=== PATIENT | female | born 1970 | race Caucasian/White ===

== ENCOUNTER → 2016-12-28 | Outpatient (REF) | payer BC | LOC: M SFHCWAGY 13:34 | PROVIDERS: ATTEND Nurse Practitioner Family | DX: Z12.4 Encounter for screening for malignant neoplasm of cervix (principal) ==

== ENCOUNTER → 2016-12-28 | Outpatient (CLI) | payer BC ==
--- NOTE | 2016-12-28 16:32 | REPMRS ---
Patient History The patient states she had a clinical breast exam in 11/2016. No known family history of cancer. Digital Woman Screen Mammo: December 28, 2016 - Exam #: [id number] Bilateral CC and MLO view(s) were taken. Technologist: Rebecca Monahan, Technologist Prior study comparison: December 23, 2014, digital woman screen mammo performed at [facility]. November 30, 2012, digital woman screen mammo performed at [facility]. April 09, 2010, bilateral bilat screen digital mammo performed at [facility]. FINDINGS: There are scattered fibroglandular densities. There has been no change in the appearance of the mammogram from the prior studies. There is a mild amount of scattered fibroglandular density which is fairly symmetric. There is no interval development of dominant mass, architectural distortion, or clustered microcalcification suggestive of malignancy. ASSESSMENT: BI-RADS/ACR category 1 mammogram. Negative. Recommendation Routine screening mammogram in 1 year (for women over age 40). This mammogram was interpreted with the aid of an FDA-approved computer-aided dectection system. Electronically Signed By: Americo Shi MD 12/28/16 [id number]
== END ==
LOC: M WHC 13:22
PROVIDERS: ATTEND Nurse Practitioner Family
DX: Z12.31 Encounter for screening mammogram for malignant neoplasm of breast (principal)

== ENCOUNTER → 2017-05-05 | Outpatient (REF) | payer BC | LOC: M LAB REF 12:17 | DX: J02.9 Acute pharyngitis, unspecified (principal) | CPT/HCPCS: 87081 ==

== ENCOUNTER → 2018-10-24 | Outpatient (CLI) | payer BC ==
--- NOTE | 2018-10-24 11:24 | REPMRS ---
Patient History The patient states she had a clinical breast exam in 09/2018. No known family history of cancer. Digital Woman Screen Mammo: October 24, 2018 - Exam #: [id number] Bilateral CC and MLO view(s) were taken. Technologist: Krista Roblero, Technologist Prior study comparison: December 28, 2016, digital woman screen mammo performed at [facility]. December 23, 2014, digital woman screen mammo performed at [facility]. FINDINGS: There are scattered fibroglandular densities. Bilateral screening digital mammogram with tomosynthesis: The patient states that there are no palpable abnormalities or other breast complaints. The patient's Tyrer-[place] Lifetime Breast Carcinoma Risk is: 9.7%. There is no interval development of dominant mass, areas of architectural distortion, or clustered microcalcification typical of malignancy. There are no additional findings on tomosynthesis. This mammogram is interpreted with the aid of an FDA approved computer-aided detection system. Not all cancers are identified by mammography. Negative mammogram reports should not delay biopsy if a dominant or clinically suspicious mass is present. Adenosis and dense breasts may obscure an underlying neoplasm. No significant changes when compared with prior studies. Assessment: BI-RADS/ACR category 1 mammogram. Negative Mammogram. Recommendation Routine screening mammogram in 1 year (for women over age 40). This mammogram was interpreted with the aid of an FDA-approved computer-aided dectection system. A. Negative x-ray reports should not delay biopsy if a dominant or clinically suspicious mass is present. B. Not all cancers are identified by mammography. C. Adenosis and dense breast may obscure an underlying neoplasm. Electronically Signed By: Mayco Mayorga M.D. 10/24/18 1124
== END ==
LOC: M WHC 08:32
PROVIDERS: ATTEND Nurse Practitioner Family
DX: Z12.31 Encounter for screening mammogram for malignant neoplasm of breast (principal)

== ENCOUNTER → 2018-10-24 | Outpatient (REF) | payer BC ==
[2018-10-26 14:24] LABS: HPV HYBRID CAPTURE II Negative (Negative)
== END ==
LOC: M SFHCWAGY 09:15
PROVIDERS: ATTEND Nurse Practitioner Family
DX: Z12.4 Encounter for screening for malignant neoplasm of cervix (principal)
CPT/HCPCS: 87624; G0123

== ENCOUNTER → 2019-10-29 | Outpatient (CLI) | payer BC ==
--- NOTE | 2019-10-29 09:55 | REPMRS ---
Patient History The patient states she had a clinical breast exam in October 2019. No known family history of cancer. Digital Woman Screen Mammo: October 29, 2019 - Exam #: [id number] Bilateral CC and MLO view(s) were taken. Technologist: Christine Fya Technologist Prior study comparison: October 24, 2018, bilateral digital woman screen mammo performed at [facility]. December 28, 2016, digital woman screen mammo performed at [facility]. December 23, 2014, digital woman screen mammo performed at [facility]. FINDINGS: The breast tissue is almost entirely fat. The Volpara volumetric breast density category is: A. There has been no change in the appearance of the mammogram from the prior studies. There is no interval development of dominant mass, architectural distortion, or grouped microcalcification typical of malignancy. 3-D tomosynthesis shows no additional findings. Assessment: BI-RADS/ACR category 1 mammogram. Negative Mammogram. Recommendation Routine screening mammogram of both breasts in 1 year (for women over age 40). This patient's Lifetime Breast Cancer RIsk is estimated at 9.6 %. This mammogram was interpreted with the aid of an FDA-approved computer-aided dectection system. Electronically Signed By: Americo Shi MD 10/29/19 0955
== END ==
LOC: M WHC 08:36
PROVIDERS: ATTEND Nurse Practitioner Family
DX: Z12.31 Encounter for screening mammogram for malignant neoplasm of breast (principal)

== ENCOUNTER → 2022-07-02 | Outpatient (CLI) | payer BC | LOC: M LAB 07:41 | PROVIDERS: ATTEND Internal Medicine Gastroenterology | DX: E55.9 Vitamin D deficiency, unspecified (principal) ==